=== PATIENT | male | born 1955 | race African-American/Black ===

== ENCOUNTER → 2016-11-16 | Day surgery (SDC) | payer MEDICARE, OTHER ==
[~2016-11-16] MED LIST: ACET325T9 PO; AMLO5TAB2 PO; ASPI-482 PO; ATOR20TA58 PO; BENZ0.5T PO; CARV12.5 PO; CARV25TA PO; DOXA2TAB2 PO; ERGO500012 PO; FENTANYL PF 100 MCG/2 ML VIAL. IV PRN; FERR-26 PO; HYDR-971 PO; HYDR12.58 PO; IV RINGERS,LACTATED 1000ML 1,000 ML IV SCH; LACT20SO PO; LEDI1TAB PO; LEVE100020 PO; LIDOCAINE 1% 1 ML SYRINGE. ID PRN; LIDOCAINE 2% PF Vial for OR 5 ML VIAL. ONE; MIDAZOLAM HCL 2 MG/2 ML VIAL. IV PRN; MIRA25TA PO; MORP15TA34 PO; MULT1CAP12 PO; OMEP20CA9 PO; ONDA4TAB7 PO; OXYC-323 PO; PANT40TA5 PO; PHEN100C PO; PHEN200C3 PO; POTA20TA82 PO; PROPOFOL 0 ML IV ONE; PROPOFOL 40 ML IV ONE; RIFA550T PO; RISP1TAB43 PO; TAMS0.4C97 PO
--- NOTE | 2016-11-16 11:14 | PDOC1 ---
HISTORY & PHYSICAL H&P Rich Rogers [id number] 1955 08/04/2016 02:40 PM 08/23 [employer] [facility], [facility] [address] [place] [address] Ph. [phone] Patient: Rich Rogers Date of : 1955 Date: 08/04/2016 2:40 PM Visit Type: Office Visit This 61 year old male presents for H/o colon cancer. History of Present Illness: 1. H/o colon cancer Pertinent negatives include abdominal pain, change in bowel habits, change in stool caliber, constipation, decreased appetite, diarrhea, melena, nausea, vomiting and weight loss. Additional information: Patient had surgery in November. No complain now. No constipation or rectal bleeding. Discussed the need for colonoscopy in October or November next year. Patient has regular oncology follow up. INTAKE COMMENTS: Intake Comments: Nurse Note: the pt is here today for a h/o colon cancer. The pt was dx'd and had surgery this year. PROBLEM LIST: Problem Description Onset Date Chronic Notes GERD 11/20/2015 Y Ascending colon malignant neoplasm 11/20/2015 PAST MEDICAL/SURGICAL HISTORY (Detailed) Disease/disorder Onset Date Management Date Comments colonoscopy 11/11/2015 anemia Cancer, colon 11/11/2015 Enlarged prostate GERD Hemiparesis Hemiplegia Hepatic failure Hepatitis C hyperlipidemia Hypertension Schizophrenia vitamin d deficiency Medications (Active): Started Medication Directions Instruction Stopped atorvastatin 20 mg tablet take 1 tablet by oral route every day benztropine 0.5 mg tablet take 1 tablet by oral route 2 times every day Coreg 25 mg tablet take 1 tablet by oral route 2 times every day with food Dulcolax (bisacodyl) 5 mg tablet,delayed release take 2 tablets at 10:00 pm ergocalciferol (vitamin D2) 400 unit tablet take 1 tablet by oral route every day ferrous gluconate 324 mg (36 mg iron) tablet Flomax 0.4 mg capsule take 1 capsule by oral route every day 1/2 hour following the same meal each day lactulose 10 gram/15 mL oral solution take 30 milliliter by oral route 2 times every day MS Contin 15 mg tablet,extended release take 1 tablet by oral route every 12 hours Holden 5 mg-325 mg tablet take 1 tablet by oral route every 6 hours as needed for pain omeprazole 20 mg tablet,delayed release take 1 Tablet by Oral route once phenytoin sodium extended 200 mg capsule take 1 capsule by oral route 3 times every day Risperdal 1 mg tablet take 1 tablet by oral route every day Xifaxan 550 mg tablet take 1 tablet by oral route 3 times every day Zofran 4 mg tablet take 2 tablet by oral route every 8 hours for 2 days Allergies: Ingredient Reaction Medication Name Comment NO KNOWN ALLERGIES REVIEW OF SYSTEMS System Neg/Pos Details Constitutional Negative Chills, fever, malaise and weight loss. ENMT Negative Sore throat. Eyes Negative Double vision. Respiratory Negative Dyspnea and wheezing. Cardio Negative Chest pain and irregular heartbeat/palpitations. GI Positive See HPI. GI Negative Abdominal pain, change in bowel habits, change in stool caliber, constipation, decreased appetite, diarrhea, melena, nausea, see HPI and vomiting. Negative Dysuria and hematuria. Endocrine Negative Cold intolerance and heat intolerance. Psych Negative Anxiety. Integumentary Negative Hives and rash. MS Negative Joint pain. Ryan/Lymph Negative Easy bleeding and easy bruising. Allergic/Immuno Negative Food allergies. VITAL SIGNS Unable to obtain Height and Weight. Time BP mm/Hg Pulse /min Resp /min Temp F Ht ft Ht in Ht cm Wt lb Wt kg BMI kg/ m2 BSA m2 O2 Sat% 2:57 PM 136/78 81 98.2 95 Time Measured by 2:57 PM Meena [facility] PHYSICAL EXAM: Exam Findings Details Constitutional Normal Well developed. Eyes Normal Conjunctiva - Right: Normal, Left: Normal. Sclera - Right: Normal, Left: Normal. Nasopharynx Normal Lips/teeth/gums - Normal. Neck Exam Normal Inspection - Normal. Thyroid gland - Normal. Respiratory Normal Inspection - Normal. Auscultation - Normal. Cardiovascular Normal Regular rate and rhythm. No murmurs, gallops, or rubs. Vascular Normal Pulses - Carotids: Normal, Femoral: Normal, Dorsalis pedis: Normal. Abdomen Normal Inspection - Normal. Anterior palpation - No guarding. No abdominal tenderness. No hepatic enlargement. No splenic enlargement. No hernia. No ascites. Skin Normal Inspection - Normal. Extremity Normal No edema. Psychiatric * Oriented to time, place, person and situation. Psychiatric Normal Appropriate mood and effect. Assessment/Plan # Detail Type Description 1. Assessment Malignant neoplasm of ascending colon (C18.2). Patient Plan Patient had surgery and has been doing well. No complain now. Had Stage IIA lesion. Not on any chemotherapy now. Provider Plan Explain the need for repeat colonoscopy in October or November next year. Plan Orders He is to schedule a follow-up visit with Dany Lau MD in 3 Months Electronically signed by: Dany Lau MD 08/04/2016 05:36 PM Document generated by: Dany Lau 08/04/2016 05:36 PM Osmin Sánchez MD, Family Practice; Abilio Rivera MD Internal Medicine; Moise Cho MD, Internal Medicine; Shannon Lau MD Internal Medicine; Dany Lau MD, Gastroenterology; Claudy Hammond MD, Rheumatology, S. Bunny Burk, Physical Medicine/Rehab J. Mary HERNANDEZ ------ 11/16/16 Patient seen and examined. Had been here for colonoscopy as has been planned. Chart reviewed. DANY LAU MD Nov 16, 2016 11:14
[2016-11-16 13:10] VITALS: BP 119/78
--- NOTE | 2016-11-16 13:13 | PDOC4 ---
GI OP Report - Dr. Eugene Date/Time DATE: 11/16/16 TIME: 13:11 Attending Physician Romel Eugene MD Referring Physician Indications Personal history of malignant neoplasm of the colon Pre-Op See the Anesthesia note for documentation of the administered medications Procedures Colonoscopy Findings - The entire examined colon is normal on direct and retroflexion views. - No specimens collected. Plan - Discharge patient to home. - Patient has a contact number available for emergencies. The signs and symptoms of potential delayed complications were discussed with the patient. Return to normal activities tomorrow. Written discharge instructions were provided to the patient. - Resume regular diet. - Continue present medications. - Repeat colonoscopy in 3 years for surveillance. - Return to my office as needed. ROMEL EUGENE MD Nov 16, 2016 13:13
== END | disposition home or self-care (01) ==
LOC: ENDOS 10:24
PROVIDERS: ATTEND Internal Medicine Gastroenterology
DX: K59.00 Constipation, unspecified (principal); Z85.038 Personal history of other malignant neoplasm of large intestine; E78.00 Pure hypercholesterolemia, unspecified; I10 Essential (primary) hypertension; K21.9 Gastro-esophageal reflux disease without esophagitis; M19.90 Unspecified osteoarthritis, unspecified site; F20.9 Schizophrenia, unspecified; D64.9 Anemia, unspecified; B19.20 Unspecified viral hepatitis C without hepatic coma
CPT/HCPCS: 45378; J2704

== ENCOUNTER 2017-05-14 23:44 | Emergency (ER) | payer MEDICARE, OTHER ==
[~2017-05-14] VITALS: Ht 175.3 cm; Wt 99.8 kg
[~2017-05-14 23:44] MED LIST changes: -ERGO500012 PO; +ERGO500027 PO; -FENTANYL PF 100 MCG/2 ML VIAL. IV PRN; -IV RINGERS,LACTATED 1000ML 1,000 ML IV SCH; -LIDOCAINE 1% 1 ML SYRINGE. ID PRN; -LIDOCAINE 2% PF Vial for OR 5 ML VIAL. ONE; -MIDAZOLAM HCL 2 MG/2 ML VIAL. IV PRN; -MORP15TA34 PO; +MORP15TA80 PO; -PROPOFOL 0 ML IV ONE; -PROPOFOL 40 ML IV ONE; -RIFA550T PO; +RIFA550T4 PO
--- NOTE | 2017-05-15 01:08 | PHYS DOC ---
Past Medical History Past Medical History: Cancer, Diabetes-Type II, GERD, High Cholesterol, Hypertension, Hepatitis, Seizure, Schizophrenia, Stroke Additional Past Medical Histor: TBI, BPH Past Surgical History: Other Additional Past Surgical Histo: Partial Colon Resection, Baclofen pump x 2 Alcohol Use: None Drug Use: None Adult General Chief Complaint Chief Complaint: PAIN CONTROL HPI HPI 61-year-old male with a history of chronic leg spasms for which patient has had a baclofen pump for years. Patient's pump was changed today because the battery had run out. This evening patient had some blood oozing from the surgical wound so he came to the emergency department for evaluation. No dizziness or near syncope. Patient otherwise asymptomatic except for his chronic pain which is unchanged Review of Systems Review of Systems Constitutional: Denies fever or chills [] Eyes: Denies change in visual acuity, redness, or eye pain [] HENT: Denies nasal congestion or sore throat [] Respiratory: Denies cough or shortness of breath [] Cardiovascular: No additional information not addressed in HPI [] GI: Denies abdominal pain, nausea, vomiting, bloody stools or diarrhea [] : Denies dysuria or hematuria [] Musculoskeletal: Denies back pain or joint pain [] Integument: Denies rash or skin lesions [] Neurologic: Denies headache, focal weakness or sensory changes [] Endocrine: Denies polyuria or polydipsia [] Allergies Allergies Allergies Coded Allergies Type Severity Reaction Last Updated Verified No Known Drug Allergies 11/16/16 No Physical Exam Physical Exam Morbidly obese male no acute distress alert communicative cooperative and appropriate. Right abdominal surgical wound clean dry and intact small amount of blood under dressing. No active bleeding. Patient has no pallor or clinical orthostasis. Extremities unremarkable Constitutional: Well developed, well nourished, no acute distress, non-toxic appearance. [] HENT: Normocephalic, atraumatic, bilateral external ears normal, oropharynx moist, no oral exudates, nose normal. [] Eyes: PERRLA, EOMI, conjunctiva normal, no discharge. [] Neck: Normal range of motion, no tenderness, supple, no stridor. [] Cardiovascular:Heart rate regular rhythm, no murmur [] Lungs & Thorax: Bilateral breath sounds clear to auscultation [] Abdomen: Bowel sounds normal, soft, no tenderness, no masses, no pulsatile masses. [] Skin: Warm, dry, no erythema, no rash. [] Back: No tenderness, no CVA tenderness. [] Extremities: No tenderness, no cyanosis, no clubbing, ROM intact, no edema. [] Neurologic: Alert and oriented X 3, normal motor function, normal sensory function, no focal deficits noted. [] Psychologic: Affect normal, judgement normal, mood normal. [] Current Patient Data Vital Signs Vital Signs Date Time Temp Pulse Resp B/P (MAP) Pulse Ox O2 Delivery O2 Flow Rate FiO2 05/14/17 23:45 98.8 110 16 167/79 (108) 95 Room Air 98.8 EKG EKG [] Radiology/Procedures Radiology/Procedures [] Course & Med Decision Making Course & Med Decision Making Pertinent Labs and Imaging studies reviewed. (See chart for details) Patient with small amount of postoperative bleeding from wound area hemostatic on M.D. evaluation. Dressing change. Hemoglobin 13.6. No further workup or treatment is indicated. Patient and family agree with outpatient follow-up with surgeon in the morning and strict return precautions given [] Dragon Disclaimer Dragon Disclaimer This electronic medical record was generated, in whole or in part, using a voice recognition dictation system. Departure Departure Impression: Primary Impression: Post-op bleeding Disposition: 01 HOME, SELF-CARE Condition: STABLE Referrals: BRAULIO TALLEY (PCP) Additional Instructions: You have been having a small amount of postoperative bleeding from her surgical wound. We checked her hemoglobin or blood level and it was appropriate at 13.6. Keep your pressure dressing applied to her wound site and follow-up with your surgeon in the morning. Return immediately for new severe or worsening symptoms specifically for massive bleeding which is uncontrollable with pressure, worsening lightheadedness or fainting. LETICIA GRIFFIN MD May 15, 2017 01:08
[2017-05-15 01:18] VITALS: BP 155/82
== END 2017-05-15 01:28 | disposition home or self-care (01) ==
LOC: ER 23:44
DX: L76.22 Postprocedural hemorrhage of skin and subcutaneous tissue following other procedure (principal); E11.9 Type 2 diabetes mellitus without complications; I10 Essential (primary) hypertension; F20.9 Schizophrenia, unspecified; E78.00 Pure hypercholesterolemia, unspecified; G89.29 Other chronic pain; N40.0 Benign prostatic hyperplasia without lower urinary tract symptoms; K21.9 Gastro-esophageal reflux disease without esophagitis; Z86.73 Personal history of transient ischemic attack (TIA), and cerebral infarction without residual deficits
CPT/HCPCS: 36415; 80047; 85014; 85018; 99284

== ENCOUNTER → 2018-03-29 | Day surgery (SDC) | payer MEDICARE, OTHER ==
[~2018-03-29] MED LIST changes: -ACET325T9 PO; -AMLO5TAB2 PO; -ASPI-482 PO; -ATOR20TA58 PO; -BENZ0.5T PO; -CARV12.5 PO; -CARV25TA PO; -DOXA2TAB2 PO; -ERGO500027 PO; -FERR-26 PO; -HYDR-971 PO; -HYDR12.58 PO; +IV RINGERS,LACTATED 1000ML 1,000 ML IV; -LACT20SO PO; -LEDI1TAB PO; -LEVE100020 PO; +LIDOCAINE 1% PF 2 ML VIAL. ID; +LIDOCAINE 2% PF Vial for OR 5 ML VIAL.; +MIDAZOLAM HCL/PF 2 MG/2 ML VIAL. IV; -MIRA25TA PO; -MORP15TA80 PO; -MULT1CAP12 PO; -OMEP20CA9 PO; -ONDA4TAB7 PO; -OXYC-323 PO; -PANT40TA5 PO; -PHEN100C PO; -PHEN200C3 PO; -POTA20TA82 PO; +PROPOFOL 20 ML IV; -RIFA550T4 PO; -RISP1TAB43 PO; -TAMS0.4C97 PO; +fentaNYL PF VIAL 100 MCG/2 ML VIAL IV
[2018-03-29] MEDS: IV RINGERS,LACTATED 1000ML 1,000 ML IV (08:26)
== END | disposition home or self-care (01) ==
LOC: ENDOS 07:53
DX: K21.9 Gastro-esophageal reflux disease without esophagitis (principal); Z85.038 Personal history of other malignant neoplasm of large intestine; Z86.19 Personal history of other infectious and parasitic diseases; I10 Essential (primary) hypertension; E78.00 Pure hypercholesterolemia, unspecified; F20.9 Schizophrenia, unspecified; E55.9 Vitamin D deficiency, unspecified; K72.90 Hepatic failure, unspecified without coma; Z79.899 Other long term (current) drug therapy; Z86.010 Personal history of colon polyps; M19.90 Unspecified osteoarthritis, unspecified site; G81.90 Hemiplegia, unspecified affecting unspecified side; N40.0 Benign prostatic hyperplasia without lower urinary tract symptoms; D64.9 Anemia, unspecified; Z90.49 Acquired absence of other specified parts of digestive tract
CPT/HCPCS: 43235; J2001; J2704

== ENCOUNTER 2021-03-08 17:17 | Emergency (ER) | payer OTHER, MEDICAID ==
[~2021-03-08] VITALS: Ht 177.8 cm; Wt 86.4 kg
[~2021-03-08 17:17] MED LIST changes: +ACET325T9 PO; +AMLO-186 PO; +ASPI-482 PO; +ATOR20TA58 PO; +BENZ0.5T32 PO; +CARV12.5 PO; +CARV25TA PO; +DOXA2TAB2 PO; +ERGO500027 PO; +FERR325T14 PO; +HYDR-3164 PO; +HYDR12.58 PO; -IV RINGERS,LACTATED 1000ML 1,000 ML IV; +LACT20SO PO; +LEDI1TAB PO; +LEVE100020 PO; -LIDOCAINE 1% PF 2 ML VIAL. ID; -LIDOCAINE 2% PF Vial for OR 5 ML VIAL.; -MIDAZOLAM HCL/PF 2 MG/2 ML VIAL. IV; +MIRA25TA PO; +MORP15TA80 PO; +MULT1CAP12 PO; +OMEP20CA16 PO; +ONDA4TAB7 PO; +OXYC1TAB15 PO; +PANT40TA77 PO; +PHEN100C PO; +PHEN200C3 PO; +POTA20TA4 PO; -PROPOFOL 20 ML IV; +RIFA550T4 PO; +RISP1TAB43 PO; +TAMS0.4C97 PO; -fentaNYL PF VIAL 100 MCG/2 ML VIAL IV
--- NOTE | 2021-03-08 18:50 | RAD ---
EXAM: XR EXAM OF ANKLE_LEFT 3V, XR FOOT_LEFT 3 VIEWS 03/08/2021 5:53 PM CLINICAL INDICATION: Pain COMPARISON: None TECHNIQUE: 3 views of the left ankle and 2 views of the left foot. FINDINGS: Left ankle: There is a nondisplaced fracture of the medial malleolus, better seen on AP view of the f oot. There is linear subchondral lucency and offset of the talar dome, possible fracture. Alignment i s normal. There is diffuse soft tissue swelling. Left foot: The bones are diffusely demineralized. Nondisplaced medial malleolar fracture seen on AP v iew of the foot. There are possible nondisplaced fractures at the medial base of the great toe proxim al phalanx and distal phalanx, possible nondisplaced fracture of the second metatarsal head. Moderate dorsal soft tissue swelling of the forefoot. IMPRESSION: 1. Nondisplaced medial malleolus fracture. 2. Possible fracture of the talar dome. 3. Possible fractures of the great toe and second metatarsal head. 4. Recommend CT of the left ankle and foot to further evaluate. Electronically signed by: Erika Álvarez MD (03/08/2021 6:48 PM) [id number]
--- NOTE | 2021-03-08 20:24 | PHYS DOC ---
Past Medical History Past Medical History: Cancer, Diabetes-Type II, GERD, High Cholesterol, H ypertension, Hepatitis, Seizure, Schizophrenia, Stroke Additional Past Medical Histor: TBI, BPH,COLON CA, HEP C, HEMIPARESIS L SIDE Past Surgical History: Other Additional Past Surgical Histo: Partial Colon Resection, Baclofen pump x 2 Smoking Status: Former Smoker Alcohol Use: None Drug Use: None General Adult EDM: Chief Complaint: LOWER EXT PAIN HPI: HPI: Patient is a 65 year old male with history of diabetes type 2, hypertension, schizophrenia, CVA with left-sided hemiparesis, TBI, high cholesterol among other illnesses who presents to the ED today complaining of moderate pain to the left foot and ankle that began today after his left ankle got caught underneath his motorized wheelchair and dragged for a couple seconds. Patient states the pain is worse on touching his ankle and foot. Denies anything specifically relieving the pain. Review of Systems: Review of Systems: Constitutional: Denies fever or chills. [] Musculoskeletal: Reports left foot and left ankle pain, denies back pain Integument: Denies rash. [] Neurologic: Denies headache, focal weakness or sensory changes. [] Psychiatric: Denies depression or anxiety. [] Heart Score: C/O Chest Pain: N/A Risk Factors: Risk Factors: DM, Current or recent (<one month) smoker, HTN, HLP, family history of CAD, obesity. Risk Scores: Score 0 - 3: 2.5% MACE over next 6 weeks - Discharge Home Score 4 - 6: 20.3% MACE over next 6 weeks - Admit for Clinical Observation Score 7 - 10: 72.7% MACE over next 6 weeks - Early Invasive Strategies Allergies: Allergies: Allergies Coded Allergies Type Severity Reaction Last Updated Verified No Known Drug Allergies 03/29/18 No Physical Exam: PE: Constitutional: Well developed, well nourished, no acute distress, non-toxic appearance. [] Skin: Warm, dry, no erythema, no rash. [] Back: No tenderness, no CVA tenderness. [] Extremities: Left foot and left ankle with moderate soft tissue swelling, tenderness on the lateral aspect of the ankle and the top of the foot and toes. Limited range of motion to the left foot and ankle. +2 left pedal pulse. Cap refill less than 2 seconds to left toes. Sensation intact to the left foot Neurologic: Alert and oriented X 3, normal motor function, normal sensory function, no focal deficits noted. [] Psychologic: Affect normal, judgement normal, mood normal. [] Current Patient Data: Vital Signs: Vital Signs Date Time Temp Pulse Resp B/P (MAP) Pulse Ox O2 Delivery O2 Flow Rate FiO2 03/08/21 18:48 74 19 112/59 (76) 99 Room Air 03/08/21 17:18 98.3 98.3 EKG: EKG: [] Radiology/Procedures: Radiology/Procedures: []PROCEDURE: FOOT LEFT 3V EXAM: XR EXAM OF ANKLE_LEFT 3V, XR FOOT_LEFT 3 VIEWS 03/08/2021 5:53 PM CLINICAL INDICATION: Pain COMPARISON: None TECHNIQUE: 3 views of the left ankle and 2 views of the left foot. FINDINGS: Left ankle: There is a nondisplaced fracture of the medial malleolus, better seen on AP view of the foot. There is linear subchondral lucency and offset of the talar dome, possible fracture. Alignment is normal. There is diffuse soft tissue swelling. Left foot: The bones are diffusely demineralized. Nondisplaced medial malleolar fracture seen on AP view of the foot. There are possible nondisplaced fractures at the medial base of the great toe proximal phalanx and distal phalanx, pos sible nondisplaced fracture of the second metatarsal head. Moderate dorsal soft tissue swelling of the forefoot. IMPRESSION: 1. Nondisplaced medial malleolus fracture. 2. Possible fracture of the talar dome. 3. Possible fractures of the great toe and second metatarsal head. 4. Recommend CT of the left ankle and foot to further evaluate. Electronically signed by: Erika Álvarez MD (03/08/2021 6:48 PM) [id number] DICTATED and SIGNED BY: ERIKA ÁLVAREZ MD DATE: 03/08/21 [id number] PROCEDURE: CT LOWER EXTREMITY WO LEFT EXAMINATION: CT LOWER LEFT EXTREMITY WITHOUT CONTRAST, 03/08/2021 7:03 PM CLINICAL INDICATION: Left foot and ankle pain COMPARISON: Left foot and ankle radiograph same day TECHNIQUE: Helical CT imaging performed of the left foot without the use of intravenous contrast. Sagittal and coronal reformats were obtained. One or more of the following individualized dose reduction techniques were utilized for this examination: 1. Automated exposure control 2. Adjustment of the mA and/or kV according to patient size 3. Use of iterative reconstruction technique. FINDINGS: There is a small nondisplaced acute avulsion fracture of the medial malleolus. Old lateral malleolus avulsion injury with small chronic osseous fragment at the tip of lateral malleolus. The talar dome is intact. There is no other fracture. Specifically, no fracture of the great toe or second metatarsal head. Moderate soft tissue swelling of the dorsal forefoot. Mild medial and lateral soft tissue swelling at the ankle. Ligament are grossly intact and normal in position. IMPRESSION: 1. Nondisplaced avulsion fracture of the medial malleolus. 2. No other fracture in the left foot or ankle. The other questioned fractures on radiographs were likely due to artifact and/or osteopenia. 3. Soft tissue swelling at the ankle and along the dorsum of the forefoot. Electronically signed by: Erika Álvarez MD (03/08/2021 8:22 PM) [id number] DICTATED and SIGNED BY: ERIKA ÁLVAREZ MD DATE: 03/08/21 [id number] 0 Course & Med Decision Making: Course & Med Decision Making Pertinent Labs and Imaging studies reviewed. (See chart for details) This is a 64-year-old male patient presented to the ED today with left foot and left ankle pain that began after his left ankle got caught underneath his m otorized wheelchair and dragged around. Right foot and left ankle x-rays interpreted by radiologist were noted for nondisplaced medial malleolus fracture. Possible fracture of the talar dome. Possible fractures of the great toe and second metatarsal head. Recommend CT of the left ankle and foot to further evaluate. CT of the left foot and ankle 1. Nondisplaced avulsion fracture of the medial malleolus. 2. No other fracture in the left foot or ankle. The other questioned fractures on radiographs were likely due to artifact and/or osteopenia. 3. Soft tissue swelling at the ankle and along the dorsum of the forefoot. Walking boot provided to the left lower extremity by the ED RN, neurovascular exam is intact. Discharged back to the long term, follow-up with orthopedic doctor. Ca Disclaimer: Ca Disclaimer: This electronic medical record was generated, in whole or in part, using a voice recognition dictation system. Departure Departure Impression: Primary Impression: Closed avulsion fracture of medial malleolus Qualified Codes: S82.52XA - Displaced fracture of medial malleolus of left tibia, initial encounter for closed fracture Disposition: HOME / SELF CARE / HOMELESS Condition: STABLE Referrals: BRAULIO TALLEY (PCP) KE JARVIS MD Please contact his office on Wednesday and set up a follow-up appointment Patient Instructions: Ankle Fracture with [facility] Additional Instructions: You have a nondisplaced avulsion fracture of the left medial malleolus. Please contact the provided orthopedic doctor on Wednesday morning and set up a follow-up appointment. Try to ice and elevate your extremity. REBECCA HOFFMAN APRN Mar 08, 2021 20:24
[2021-03-08] MEDS ORDERED: ONDANSETRON ODT 4 MG TAB.RAPDIS. PO ONE (20:45)
[2021-03-08] MEDS ORDERED: HYDROcodone/APAP 5/325MG 1 TAB TABLET PO ONE (20:45)
[2021-03-08 21:18] VITALS: BP 122/76
== END 2021-03-08 21:50 | disposition home or self-care (01) ==
LOC: ER 17:17
DX: S82.55XA Nondisplaced fracture of medial malleolus of left tibia, initial encounter for closed fracture (principal); E11.9 Type 2 diabetes mellitus without complications; K21.9 Gastro-esophageal reflux disease without esophagitis; E78.00 Pure hypercholesterolemia, unspecified; I10 Essential (primary) hypertension; F20.9 Schizophrenia, unspecified; Z87.820 Personal history of traumatic brain injury; Z86.73 Personal history of transient ischemic attack (TIA), and cerebral infarction without residual deficits; W23.0XXA Caught, crushed, jammed, or pinched between moving objects, initial encounter; Y93.89 Activity, other specified; Y92.89 Other specified places as the place of occurrence of the external cause; Y99.8 Other external cause status
CPT/HCPCS: 73610; 73630; 73700; 99285